=== PATIENT | male | born 1985 | race Caucasian/White ===

== ENCOUNTER 2019-07-09 17:41 | Emergency (ER) | payer OTHER ==
[2019-07-09 18:08] VITALS: RESP 18
[2019-07-09 19:19] VITALS: BP 124/81; PULSE 94; TEMP 98
--- NOTE | 2019-07-09 20:09 | ED ---
Recheck HPI - General Chief Complaint: Recheck/Abnormal Lab/Rx Stated Complaint: Drug reaction/[place] Time Seen by Provider: 07/09/19 17:46 Source: EMS Mode of arrival: EMS Limitations: no limitations - History of Present Illness Initial Comments: Patient states that his detox center accidentally doubled up on his phenobarbital dose. He doesn't feel more somnolent than usual. He has had no seizures. He has no chest pain or weakness. He has no shortness of breath, nausea or vomiting. He has no lightheadedness or dizziness. He has no focal weakness. - Related Data Home Medications Medication Instructions Recorded Confirmed Brexpiprazole [Rexulti] 2 mg PO DAILY 07/09/19 07/09/19 DULoxetine HCL [Cymbalta] 120 mg PO DAILY 07/09/19 07/09/19 Allergies Allergy/AdvReac Type Severity Reaction Status Date / Time Penicillins Allergy Swelling Verified 07/09/19 17:58 Review of Systems ROS Statement: Those systems with pertinent positive or pertinent negative responses have been documented in the HPI. ROS Other: All systems not noted in ROS Statement are negative. Past Medical History Past Medical History: No Reported History History of Any Multi-Drug Resistant Organisms: None Reported Past Surgical History: No Surgical Hx Reported Past Psychological History: Anxiety, Depression, PTSD Smoking Status: Current every day smoker Past Alcohol Use History: None Reported Past Drug Use History: Cocaine, Prescription Drug Abuse General Exam Limitations: no limitations General appearance: alert, in no apparent distress Head exam: Present: atraumatic, normocephalic, normal inspection Eye exam: Present: normal appearance, PERRL, EOMI. Absent: scleral icterus, conjunctival injection, periorbital swelling ENT exam: Present: normal exam, mucous membranes moist Neck exam: Present: normal inspection. Absent: tenderness, meningismus, lymphadenopathy Respiratory exam: Present: normal lung sounds bilaterally. Absent: respiratory distress, wheezes, rales, rhonchi, stridor Cardiovascular Exam: Present: regular rate, normal rhythm, normal heart sounds. Absent: systolic murmur, diastolic murmur, rubs, gallop, clicks GI/Abdominal exam: Present: soft, normal bowel sounds. Absent: distended, tenderness, guarding, rebound, rigid Extremities exam: Present: normal inspection, full ROM, normal capillary refill. Absent: tenderness, pedal edema, joint swelling, calf tenderness Back exam: Present: normal inspection Neurological exam: Present: alert, oriented X3, CN II-XII intact Psychiatric exam: Present: normal affect, normal mood Skin exam: Present: warm, dry, intact, normal color. Absent: rash Course Vital Signs 07/09/19 07/09/19 17:58 19:19 Temperature 98.7 F 98 F Pulse Rate 105 H 94 Respiratory 18 18 Rate Blood Pressure 131/96 124/81 O2 Sat by Pulse 98 98 Oximetry Medical Decision Making - Medical Decision Making Patient states that his rehab center doubled up on one dose of his phenobarbital. He has no homicidal or suicidal ideation. He has no symptoms of phenobarbital overdose. His exam is unremarkable. He is observed for a couple hours to the ER. There is no evidence of any acute emergency condition. He has no complaints. He is stable for discharge. Disposition Clinical Impression: Medication overdose Disposition: HOME SELF-CARE Condition: Good Instructions (If sedation given, give patient instructions): Benzodiazepine Overdose (ED) Is patient prescribed a controlled substance at d/c from ED?: No Referrals: None,Stated [Primary Care Provider] - 1-2 days
== END 2019-07-09 20:57 | disposition home or self-care (01) ==
LOC: EC 17:41
DX: R40.0 Somnolence (principal); T42.3X5A Adverse effect of barbiturates, initial encounter; F41.9 Anxiety disorder, unspecified; F32.9 Major depressive disorder, single episode, unspecified; F17.200 Nicotine dependence, unspecified, uncomplicated; Z79.899 Other long term (current) drug therapy; Z88.0 Allergy status to penicillin
CPT/HCPCS: 36415; 80184; 99283